=== PATIENT | male | born 1960 | race Caucasian/White ===

== ENCOUNTER 2017-01-13 12:30 | Emergency (ER) | payer OTHER ==
[~2017-01-13] VITALS: Ht 167.6 cm; Wt 81.8 kg
[~2017-01-13 12:30] MED LIST: BENICAR40 MG PO; CIPRO 500MG TA500 MG PO; PRILOSEC 20MG20 MG PO; ULTRAM 50MG TAB50 MG PO
[2017-01-13 13:06] LABS: BASO # 0.1 (0.02-0.10); EOS % 0.2 % (0.0-4.0); HEMOGLOBIN 16.5 g/dL (13.5-18.0); LYMPH# 1.6 (1.50-4.00); MEAN CELL VOLUME 89 fl (78-100); MEAN CORPUSCULAR HEMOGLOBIN 30 pg (27-31); MEAN CORPUSCULAR HGB CONC 34 g/dL (33-37); MEAN PLATELET VOLUME 10.2 fl (7.4-10.4); MONO # 0.6 (0.20-0.80); NEU # 6.9 (1.40-6.50); PLATELET COUNT 238 K/mm3 (130-400); RED CELL DISTRIBUTION WIDTH 13.2 % (11.5-14.5); WHITE BLOOD COUNT 9.2 K/mm3 (4.8-10.8)
[2017-01-13 13:20] LABS: ALBUMIN 4.1 g/dL (3.5-5.0); BUN/CREATININE RATIO 11.3 (6.0-26.0); POTASSIUM 3.9 mmol/L (3.6-5.0); TOTAL BILIRUBIN 0.9 mg/dL (0.2-1.3); TOTAL PROTEIN 7.5 g/dL (6.3-8.2)
[2017-01-13 15:50] LABS: PH-URINE 7.5 (5.0 - 8.0); URINE APPEARANCE CLEAR; URINE BILIRUBIN NEGATIVE (NEGATIVE); URINE BLOOD NEGATIVE (NEGATIVE); URINE COLOR YELLOW; URINE GLUCOSE NEGATIVE (NEGATIVE); URINE KETONE 2+ (NEGATIVE); URINE LEUKOCYTE ESTERASE NEGATIVE (NEGATIVE); URINE MUCUS PRESENT (NOT PRESENT); URINE NITRATE NEGATIVE (NEGATIVE); URINE PROTEIN(semi-quant) TRACE mg/dL (NEGATIVE); URINE UROBILINOGEN NORMAL (NORMAL); URINE WBC 0-1 /hpf (0-3)
[2017-01-13 17:06] LABS: CKMB ISOENZYME 3.1 ng/mL (0.6-3.5)
[2017-01-13 17:07] LABS: TROPONIN-I < 0.03 ng/mL (0.00-0.06)
[2017-01-13 17:28] LABS: D-DIMER 0.5 mg/L FEU (0.15-0.50)
[2017-01-13] MEDS ORDERED: PEPCID 20MG TAB20 MG PO (17:28)
[2017-01-13] MEDS ORDERED: MEDROL DOSEPAK4 MG PO (17:28)
[2017-01-13] MEDS ORDERED: ZYRTEC10 M3 PO (17:28)
[2017-01-13 17:45] VITALS: BP 184/104
== END 2017-01-13 17:34 | disposition home or self-care (01) ==
LOC: ED 12:30
PROVIDERS: Physician Assistant
DX: T43.621A Poisoning by amphetamines, accidental (unintentional), initial encounter (principal); T78.3XXA Angioneurotic edema, initial encounter; I10 Essential (primary) hypertension; R51 Headache; F15.988 Other stimulant use, unspecified with other stimulant-induced disorder; Z72.89 Other problems related to lifestyle; T46.5X6A Underdosing of other antihypertensive drugs, initial encounter; Z91.128 Patient's intentional underdosing of medication regimen for other reason
CPT/HCPCS: J1885; J2930; J3490